=== PATIENT | female | born 1995 | race Two or more races ===

== ENCOUNTER → 2020-04-20 12:41 | Outpatient (BNVA) | payer OTHER, SELFPAY | PROVIDERS: PCP Internal Medicine; Referring Provider Internal Medicine; Visit Provider Nurse Practitioner | DX: Z76.89 Persons encountering health services in other specified circumstances (principal) ==

== ENCOUNTER → 2020-06-01 14:08 | Outpatient (BNVA) | payer OTHER, SELFPAY | PROVIDERS: PCP Internal Medicine; Visit Provider Nurse Practitioner ==

== ENCOUNTER → 2020-11-16 15:28 | Outpatient (BNVA) | payer OTHER, SELFPAY | PROVIDERS: Visit Provider Nurse Practitioner ==

== ENCOUNTER 2021-08-02 13:31 | Outpatient (REF) | payer OTHER, SELFPAY ==
[2021-08-02 13:46] LABS: MANUAL DIFF FLAG NO
[2021-08-02 13:54] LABS: Basophils Percent Auto 0.7 % (0-2); Eosinophils Absolute Auto 0.1 X10*3/uL (0.0-0.4); Hematocrit 40.5 % (37.0-47.0); Hemoglobin 12.8 g/dl (12.0-16.0); Imm Gran Abs Auto 0.02 X10*3/uL (0.00-0.03); Imm Gran Pct Auto 0.3 % (0.0-0.4); Lymphocytes Absolute Auto 1.8 X10*3/uL (1.2-4.9); Lymphocytes Percent Auto 30.3 % (20-40); Mean Corpuscular HGB Conc 31.6 g/dl (31.0-35.0); Mean Corpuscular Volume 94.8 fL (80.0-98.0); Mean Platelet Volume 9.8 fL (9.4-12.3); Monocytes Absolute Auto 0.6 X10*3/uL (0.1-1.2); Monocytes Percent Auto 9.6 % (2-11); Neutrophils Absolute Auto 3.4 x10*3/uL (2.0-8.3); Neutrophils Percent Auto 57.1 % (45-73); Platelet Count 277 X10*3/uL (160-400); Red Blood Count 4.27 X10*6/uL (4.20-5.50); Red Cell Distribution Width 12.7 % (11.0-16.0)
[2021-08-02 14:22] LABS: Alanine Aminotransferase 37 U/L (0-31); Albumin Level 4.6 g/dL (3.5-5.0); Alkaline Phosphatase 59 U/L (39-117); Anion Gap 11 (12-20); Aspartate Amino Transferase 21 U/L (5-31); Bilirubin Total 0.5 mg/dL (0.0-1.0); Blood Urea Nitrogen 11 mg/dL (9-16); Calcium 9.8 mg/dL (8.4-10.2); Carbon Dioxide 28 mmol/L (22-29); Chloride 103 mmol/L (96-108); Estimated Glomerular Filt Rate > 60; Glucose Random 93 mg/dL (60-115); Sodium 138 mmol/L (135-145); Total Protein 8.2 g/dL (6.5-8.0)
== END 2021-08-02 13:32 | disposition home or self-care (01) ==
LOC: HO.LAB 13:31
PROVIDERS: PCP Internal Medicine; Visit Provider Nurse Practitioner
DX: R74.01 Elevation of levels of liver transaminase levels (principal)
CPT/HCPCS: 36415; 80053; 85025

== ENCOUNTER → 2021-08-05 13:26 | Outpatient (BNVA) | payer OTHER, SELFPAY | PROVIDERS: PCP Internal Medicine; Referring Provider Internal Medicine; Visit Provider Nurse Practitioner | DX: R19.7 Diarrhea, unspecified (principal); R74.01 Elevation of levels of liver transaminase levels | CPT/HCPCS: 99212 ==

== ENCOUNTER 2022-04-04 12:09 | Emergency (ER) | payer OTHER, SELFPAY ==
--- NOTE | ~2022-04-04 | XR_ITS ---
EXAMINATION: XR CHEST CLINICAL INFORMATION: Cough, chest pain COMPARISON: None TECHNIQUE: Frontal view of the chest was obtained. FINDINGS: The lungs are clear. No pneumothorax. No airspace consolidation or groundglass opacity or effusion. The heart is normal in size. The hilar and mediastinal contours and bony structures are unremarkable. XR/XR chest 1V IMPRESSION: Unremarkable examination.
--- NOTE | 2022-04-04 13:14 | ED_ITS ---
HPI - Chest Pain General Chief Complaint: Upper Respiratory Symptoms <LICHA Gann - Last Filed: 04/04/22 13:19> Stated Complaint: Chest pain/Cough <LICHA Gann - Last Filed: 04/04/22 13:19> Time Seen by Provider: 04/04/22 15:45 <LICHA Gann - Last Filed: 04/04/22 13:19> History of Present Illness HPI narrative: 26-year-old female with a past medical history of asthma, GERD and transaminitis presents to the emergency department with complaints of substernal burning and pain with coughing x 1 day. Patient states she woke up this morning with a with a new cough and fever. T-max at home 99 ?. She states due to the frequency of coughing she attributes a new burning pain near her sternum when she coughs. She denies any recent illness or known sick contacts. She denies headache, shortness of breath, chills, nausea, vomiting, or changes in vision. <Joseline Pablo NP - Last Filed: 04/04/22 17:08> MD complaint: chest discomfort <Joseline Pablo NP - Last Filed: 04/04/22 17:08> Onset (ago): hour(s) <Joseline Pablo NP - Last Filed: 04/04/22 17:08> Timing of current episode: episodic <Joseline Pablo NP - Last Filed: 04/04/22 17:08> Prior episodes: No <Joseline Pablo NP - Last Filed: 04/04/22 17:08> Onset: during rest and other (With cough) <Joseline Pablo NP - Last Filed: 04/04/22 17:08> Pain location: substernal <Joseline Pablo NP - Last Filed: 04/04/22 17:08> Pain radiation: none <Joseline Pablo NP - Last Filed: 04/04/22 17:08> Severity: mild <Joseline Pablo NP - Last Filed: 04/04/22 17:08> Pain scale (0-10): 4 <Joseline Pablo NP - Last Filed: 04/04/22 17:08> Quality: burning <Joseline Pablo NP - Last Filed: 04/04/22 17:08> Relieving factors: nothing <Joseline Pablo NP - Last Filed: 04/04/22 17:08> Exacerbating factors: other (Coughing) <Joseline Pablo NP - Last Filed: 04/04/22 17:08> Associated symptoms: fever and cough <Joseline Pablo NP - Last Filed: 04/04/22 17:08> Treatment prior to arrival: none <Joseline Pablo NP - Last Filed: 04/04/22 17:08> Risk Factors Coronary artery disease risk factors: none <Joseline Pablo NP - Last Filed: 04/04/22 17:08> Thoracic aortic dissection risk factors: none <Joseline Pablo NP - Last Filed: 04/04/22 17:08> Related Data On Oral Contraceptives: No <Joseline Pablo NP - Last Filed: 04/04/22 17:08> Home Medications: Previous Rx's Medication Instructions Recorded sucralfate 1 gram tablet (Carafate) 2 g PO DAILY #60 tabs 08/05/21 albuterol sulfate 90 mcg/actuation 2 inh inhalation Q4-6H PRN 04/04/22 breath activated powder inhaler shortness of breath or wheezing #1 (ProAir RespiClick) ea <LICHA Gann - Last Filed: 04/04/22 13:19> Allergies/Adverse Reactions: Allergies Allergy/AdvReac Type Severity Reaction Status Date / Time No Known Allergies Allergy Verified 08/05/21 13:50 [No Known Allergies*] <LICHA Gann - Last Filed: 04/04/22 13:19> Review of Systems Review of Systems: Yes all other systems are reviewed and are negative <Joseline Pablo NP - Last Filed: 04/04/22 17:08> Constitutional: Constitutional: Reports no additional constitutional complaints, Denies body ache(s), Denies chills, Reports fever(s) and Denies headache(s) <Joseline Plmaine, CONTAINER MAKER - Last Filed: 04/04/22 17:08> Eyes: Eyes: Reports no additional eye complaints and Denies change in vision <Joseline Plmaine, CONTAINER MAKER - Last Filed: 04/04/22 17:08> ENT: Reports system reviewed and no additional complaints, except as docu mented, Reports Normal hearing present, Denies dizziness, Denies headache(s), Denies nasal congestion, Denies sinus pain, Denies sinus pressure and Reports sore throat <Joseline Plucreji, CONTAINER MAKER - Last Filed: 04/04/22 17:08> Cardiovascular: Cardiovascular: Reports no additional cardiovascular complaints, Denies Loss of Consciousness and Denies dyspnea <Joseline Plmaine, CONTAINER MAKER - Last Filed: 04/04/22 17:08> Respiratory: Respiratory: Reports no additional respiratory complaints, Denies chest congestion, Reports cough, Reports pain on inspiration, Denies dyspnea and Denies wheezing <Joseline Plmaine, CONTAINER MAKER - Last Filed: 04/04/22 17:08> Gastrointestinal: Gastrointestinal: Reports no additional gastrointestinal complaints, Denies change in stool character, Denies constipation, Denies diarrhea, Denies nausea and Denies vomiting <Joseline Bev, CONTAINER MAKER - Last Filed: 04/04/22 17:08> Genitourinary: Genitourinary: Reports no additional female genitourinary complaints <Joseline Plmaine, CONTAINER MAKER - Last Filed: 04/04/22 17:08> Musculoskeletal: Musculoskeletal: Reports no additional musculoskeletal com plaints, Denies myalgias, Denies numbness and Denies tingling <Joseline Plucreji, CONTAINER MAKER - Last Filed: 04/04/22 17:08> Integumentary/Breasts: Skin/Breast: Reports system reviewed and no additional complaints, except as docu, Denies lesions, Denies rash and Denies sores <Joseline Pluciennik, CONTAINER MAKER - Last Filed: 04/04/22 17:08> Neurologic: Reports system reviewed and no additional complaints, except as documented, Reports Normal hearing present, Denies dizziness, Denies headache(s), Denies numbness and Denies tingling <Joseline Pluciennik, CONTAINER MAKER - Last Filed: 04/04/22 17:08> Psychiatric: Psychiatric: Reports no additional psychiatric complaints <Joseline Pablo NP - Last Filed: 04/04/22 17:08> Endocrine: Endocrine: Reports no additional endocrine complaints <Joseline Pablo NP - Last Filed: 04/04/22 17:08> Allergic/Immunologic: Allergic/Immunologic: Denies wheezing <Joseline Pablo NP - Last Filed: 04/04/22 17:08> [facility] Past Medical History Attestation statement: The following information was validated with the patient. <Joseline Pablo NP - Last Filed: 04/04/22 17:08> Source: old records reviewed <Joseline Pablo NP - Last Filed: 04/04/22 17:08> Surgical History: Surgical History Hx of cholecystectomy (~2014) <LICHA Gann - Last Filed: 04/04/22 13:19> Family History Family History: Family History Father No problems noted. Mother No problems noted. <LICHA Gann - Last Filed: 04/04/22 13:19> Social History Social History: Social History Alcohol intake: current Alcohol intake frequency: holidays/special occasions only Advance Directives: No Advance Directives Information Provided: Yes <LICHA Gann - Last Filed: 04/04/22 13:19> Physical Exam Vital Signs: Vital Signs: Last Vital Signs Temp 100.4 F 04/04/22 13:15 Pulse 118 H 04/04/22 13:15 Resp 18 04/04/22 13:15 BP 133/76 04/04/22 13:15 Pulse Ox 98 04/04/22 13:15 O2 Del Method 04/04/22 13:15 BMI result Body Mass Index 24.2 <LICHA Gann - Last Filed: 04/04/22 13:19> Vital Signs: Last Vital Signs Temp 100.4 F 04/04/22 13:15 Pulse 118 H 04/04/22 13:15 Resp 18 04/04/22 13:15 BP 133/76 04/04/22 13:15 Pulse Ox 98 04/04/22 13:15 O2 Del Method 04/04/22 13:15 BMI result Body Mass Index 24.2 <Joseline Pablo CONTAINER MAKER - Last Filed: 04/04/22 17:08> Const: General: cooperative, alert, awake and well groomed <Joseline Pablo CONTAINER MAKER - Last Filed: 04/04/22 17:08> Nutritional Appearance: average body habitus <Joseline Pablo CONTAINER MAKER - Last Filed: 04/04/22 17:08> Orientation/consciousness: patient oriented x3 <Joseline Pablo CONTAINER MAKER - Last Filed: 04/04/22 17:08> Limitations: no limitations <Joseline Pablo CONTAINER MAKER - Last Filed: 04/04/22 17:08> HEENT: Head: Yes normal to inspection, Yes normocephalic and Yes atraumatic <Joseline Pablo CONTAINER MAKER - Last Filed: 04/04/22 17:08> Ears: hearing grossly normal bilaterally and external ears normal <Joseline Pablo CONTAINER MAKER - Last Filed: 04/04/22 17:08> General nose exam: Normal external nose present and Normal nares present <Joseline Pablo CONTAINER MAKER - Last Filed: 04/04/22 17:08> Face and sinus: Yes normal facial exam, Yes sinuses nontender and Yes face symmetric <Joseline Pablo CONTAINER MAKER - Last Filed: 04/04/22 17:08> Mouth: Normal oral and palatal mucosa present <Joseline Pablo CONTAINER MAKER - Last Filed: 04/04/22 17:08> Throat: Yes tonsils normal and Yes uvula midline <Joseline Pablo CONTAINER MAKER - Last Filed: 04/04/22 17:08> Eyes: General: appearance normal, both eyes and all related structures <Joseline Pablo CONTAINER MAKER - Last Filed: 04/04/22 17:08> Visual Seaman: normal visual seaman by confrontation <Joseline Pablo CONTAINER MAKER - Last Filed: 04/04/22 17:08> Alignment and Position: alignment normal <Joseline Pablo CONTAINER MAKER - Last Filed: 04/04/22 17:08> Periorbital: periorbital findings normal <Joseline Pablo, CONTAINER MAKER - Last Filed: 04/04/22 17:08> Eyelids: Yes eyelids normal <Joseline Pablo, CONTAINER MAKER - Last Filed: 04/04/22 17:08> Conjunctivae: conjunctivae normal <Joseline Pablo, CONTAINER MAKER - Last Filed: 04/04/22 17:08> Sclerae: sclerae normal <Joseline Pablo, CONTAINER MAKER - Last Filed: 04/04/22 17:08> Pupils: Equal, round and reactive pupils present <Joseline Pablo, CONTAINER MAKER - Last Filed: 04/04/22 17:08> EOM: EOMs intact bilaterally <Joseline Pablo, CONTAINER MAKER - Last Filed: 04/04/22 17:08> Neck: Neck: Yes normal visual inspection and Yes full ROM <Joseline Pablo CONTAINER MAKER - Last Filed: 04/04/22 17:08> Chest: Chest palpation & inspection: normal inspection of the chest <Joseline Pablo CONTAINER MAKER - Last Filed: 04/04/22 17:08> Resp: Effort & Inspection: normal respiratory effort, able to speak in complete sentences, Actively coughing and not labored <Joseline Pablo CONTAINER MAKER - Last Filed: 04/04/22 17:08> Auscultation: clear to auscultation bilaterally, no crackles, no rhonchi and no wheezes <Joseline Pablo CONTAINER MAKER - Last Filed: 04/04/22 17:08> Cardio: Rate: regular rate <Joseline Pablo, CONTAINER MAKER - Last Filed: 04/04/22 17:08> Rhythm: regular rhythm <Joseline Pablo CONTAINER MAKER - Last Filed: 04/04/22 17:08> GI: Inspection: Yes normal to inspection <Joseline Pablo, CONTAINER MAKER - Last Filed: 04/04/22 17:08> Auscultation: normal bowel sounds <Joseline Pablo, CONTAINER MAKER - Last Filed: 04/04/22 17:08> Back/Spine/Pelvis: Cervical Spine: cervical ROM normal <Joseline Pablo, CONTAINER MAKER - Last Filed: 04/04/22 17:08> Thoracic/Lumbar Spine: thoraco-lumbar ROM normal <Joseline Pablo, CONTAINER MAKER - Last Filed: 04/04/22 17:08> Skin: General skin exam: no rashes or lesions noted <Joseline aPblo, CONTAINER MAKER - Last Filed: 04/04/22 17:08> Neuro: General: patient oriented x3, gait normal and moves all extremities <Joseline Pablo, CONTAINER MAKER - Last Filed: 04/04/22 17:08> Cranial nerves: Yes Equal, round and reactive pupils present, Yes Bilaterally intact EOM present and Yes Normal hearing present <Joseline Pablo, CONTAINER MAKER - Last Filed: 04/04/22 17:08> Cognition (Neuro): normal cognition <Joseline Pablo, CONTAINER MAKER - Last Filed: 04/04/22 17:08> Gait exam (Neuro): Normal gait present <Joselien Pablo, CONTAINER MAKER - Last Filed: 04/04/22 17:08> Motor exam (neuro): 5/5 motor strength present throughout <Joseline Pablo, CONTAINER MAKER - Last Filed: 04/04/22 17:08> Extrem: General: Yes normal to inspection, Yes full ROM and Yes capillary refill normal <Joseline Pablo, CONTAINER MAKER - Last Filed: 04/04/22 17:08> Psych: Appearance: grossly normal <Joseline Pablo, CONTAINER MAKER - Last Filed: 04/04/22 17:08> Mental Status: mental status grossly normal <Joseline Pablo, CONTAINER MAKER - Last Filed: 04/04/22 17:08> Speech and movement: Normal speech and movement present <Joseline Pablo, CONTAINER MAKER - Last Filed: 04/04/22 17:08> Affect: normal affect <Joseline Pablo, CONTAINER MAKER - Last Filed: 04/04/22 17:08> Attitude: cooperative <Joseline Pablo NP - Last Filed: 04/04/22 17:08> Thought process: Normal thought process present <Joseline Pablo NP - Last Filed: 04/04/22 17:08> Thought content: Normal thought content present <Joseline Pablo NP - Last Filed: 04/04/22 17:08> Insight: Good insight present (Psych) <Joseline Pablo NP - Last Filed: 04/04/22 17:08> Judgement: Good judgement present (Psych) <Joseline Pablo NP - Last Filed: 04/04/22 17:08> Course Course Course Narrative: 1500: Serology negative for influenza a, influenza B, RSV, COVID <Joseline Pablo NP - Last Filed: 04/04/22 17:08> Reevaluation(s) Reevaluation #1: RME 26 year old female no significant medical hx presents w/ substernal cp described as burning X1 day, tells me pain doesnt radiate. Describes it as a burning and pain with coughing. No sick contacts. No SOB, headache, dizziness, vision changes, leg swelling. Rapid covid negative at home. Non smoker , not on control, no long travel, no history of blood clots. PE: benign, febrile Plan: labs, ekgs, chest xray, ibuprofen for fever <LICHA Gann - Last Filed: 04/04/22 13:19> Time: 13:17 <LICHA Gann - Last Filed: 04/04/22 13:19> Medications Administered Discontinued Medications Generic Name Dose Route Start Last Admin Trade Name Freq PRN Reason Stop Dose Admin Ibuprofen 800 mg 04/04/22 13:19 04/04/22 14:41 Ibuprofen 800 Mg Tablet PO 04/04/22 13:20 800 mg ONCE ONE Administration <LICHA Gann - Last Filed: 04/04/22 13:19> Medications Administered Discontinued Medications Generic Name Dose Route Start Last Admin Trade Name Freq PRN Reason Stop Dose Admin Ibuprofen 800 mg 04/04/22 13:19 04/04/22 14:41 Ibuprofen 800 Mg Tablet PO 04/04/22 13:20 800 mg ONCE ONE Administration <Joseline Pablo NP - Last Filed: 04/04/22 17:08> MDM - Chest Pain MDM Narrative Medical decision making narrative: 26-year-old female presented to the emergency department with complaints of substernal burning and pain with coughing x 1 day. Blood work unremarkable. Serology negative for flu a, flu B, RSV, or COVID. EKG sinus tachycardia. Chest x-ray unremarkable. Diagnostics, physical exam, history discuss with patient with plan for symptom management with Tylenol, Motrin, [id number] cough medication, increased fluid intake, and rest.? Albuterol inhaler ordered for shortness of breath and wheezing as patient believes she has been diagnosed with asthma in the past.? Patient in agreement with plan with no unanswered questions at this time.? Educated to please return to the emergency department for worsening shortness of breath, increased cough, fever despite treatment with Tylenol Motrin, or any other emergent symptoms that concern you.? Recommended follow-up with primary care provider for further treatment and management.? <Joseline Pablo NP - Last Filed: 04/04/22 17:08> Medical Records Data Attestation: I reviewed the patient's medical records. <Joseline Pablo NP - Last Filed: 04/04/22 17:08> Lab Data Attestation: I reviewed the patient's lab results. <Joseline Pablo NP - Last Filed: 04/04/22 17:08> Result diagrams: : 04/04/22 14:49 04/04/22 14:49 <LICHA Gann - Last Filed: 04/04/22 13:19> Labs: Lab Results 04/04/22 04/04/22 04/04/22 Range/Units 14:49 14:49 14:49 WBC 9.2 (4.8-10.8) X10*3/uL RBC 4.40 (4.20-5.50) X10*6/uL Hgb 13.0 (12.0-16.0) g/dl Hct 39.7 (37.0-47.0) % MCV 90.2 (80.0-98.0) fL MCH 29.5 (27.0-33.0) pg MCHC 32.7 (31.0-35.0) g/dl RDW 12.7 (11.0-16.0) % Plt Count 239 (160-400) X10*3/uL MPV 10.3 (9.4-12.3) fL Immature Gran % (Auto) 0.2 (0.0-0.4) % Neut % (Auto) 90.9 H (45-73) % Lymph % (Auto) 3.7 L (20-40) % [place] % (Auto) 4.8 (2-11) % Eos % (Auto) 0.2 (0-4) % Baso % (Auto) 0.2 (0-2) % Lymph # (Auto) 0.3 L (1.2-4.9) X10*3/uL [place] # (Auto) 0.4 (0.1-1.2) X10*3/uL Eos # (Auto) 0.0 (0.0-0.4) X10*3/uL Baso # (Auto) 0.0 (0.0-0.2) X10*3/uL Abs Immat Gran (auto) 0.02 (0.00-0.03) X10*3/uL Absolute Neuts (auto) 8.4 H (2.0-8.3) x10*3/uL Absolute Nucleated RBC 0.000 (0.0-0.012) X10*3/uL Nucleated RBC % (auto) 0.0 (0.0-0.2) /100WBC Sodium 138 (135-145) mmol/L Potassium 4.1 (3.3-5.1) mmol/L Chloride 102 (96-108) mmol/L Carbon Dioxide 25 (22-29) mmol/L Anion Gap 15 (12-20) BUN 20 H D (9-16) mg/dL Creatinine 0.78 (0.5-1.4) mg/dL Estim Creat Clear Calc 100.5 Estimated GFR > 60 Random Glucose 101 (60-115) mg/dL Calcium 9.5 (8.4-10.2) mg/dL Magnesium 2.0 (1.6-2.6) mg/dL Total Bilirubin 0.3 (0.0-1.0) mg/dL AST 22 (5-31) U/L ALT 24 (0-31) U/L Alkaline Phosphatase 63 (39-117) U/L Troponin I High Sens < 3.5 (<3.5-17.0) ng/L Total Protein 8.0 (6.5-8.0) g/dL Albumin 4.6 (3.5-5.0) g/dL Influenza Type A (PCR) (Negative) Influenza Type B (PCR) (Negative) RSV RNA Qual (PCR) (Negative) SARS-CoV-2 RNA (RT-PCR) (Negative) 04/04/22 Range/Units 14:49 WBC (4.8-10.8) X10*3/uL RBC (4.20-5.50) X10*6/uL Hgb (12.0-16.0) g/dl Hct (37.0-47.0) % MCV (80.0-98.0) fL MCH (27.0-33.0) pg MCHC (31.0-35.0) g/dl RDW (11.0-16.0) % Plt Count (160-400) X10*3/uL MPV (9.4-12.3) fL Immature Gran % (Auto) (0.0-0.4) % Neut % (Auto) (45-73) % Lymph % (Auto) (20-40) % [place] % (Auto) (2-11) % Eos % (Auto) (0-4) % Baso % (Auto) (0-2) % Lymph # (Auto) (1.2-4.9) X10*3/uL [place] # (Auto) (0.1-1.2) X10*3/uL Eos # (Auto) (0.0-0.4) X10*3/uL Baso # (Auto) (0.0-0.2) X10*3/uL Abs Immat Gran (auto) (0.00-0.03) X10*3/uL Absolute Neuts (auto) (2.0-8.3) x10*3/uL Absolute Nucleated RBC (0.0-0.012) X10*3/uL Nucleated RBC % (auto) (0.0-0.2) /100WBC Sodium (135-145) mmol/L Potassium (3.3-5.1) mmol/L Chloride (96-108) mmol/L Carbon Dioxide (22-29) mmol/L Anion Gap (12-20) BUN (9-16) mg/dL Creatinine (0.5-1.4) mg/dL Estim Creat Clear Calc Estimated GFR Random Glucose (60-115) mg/dL Calcium (8.4-10.2) mg/dL Magnesium (1.6-2.6) mg/dL Total Bilirubin (0.0-1.0) mg/dL AST (5-31) U/L ALT (0-31) U/L Alkaline Phosphatase (39-117) U/L Troponin I High Sens (<3.5-17.0) ng/L Total Protein (6.5-8.0) g/dL Albumin (3.5-5.0) g/dL Influenza Type A (PCR) NEGATIVE (Negative) Influenza Type B (PCR) NEGATIVE (Negative) RSV RNA Qual (PCR) NEGATIVE (Negative) SARS-CoV-2 RNA (RT-PCR) NEGATIVE (Negative) <LICHA Gann - Last Filed: 04/04/22 13:19> Lab Results 04/04/22 04/04/22 04/04/22 Range/Units 14:49 14:49 14:49 WBC 9.2 (4.8-10.8) X10*3/uL RBC 4.40 (4.20-5.50) X10*6/uL Hgb 13.0 (12.0-16.0) g/dl Hct 39.7 (37.0-47.0) % MCV 90.2 (80.0-98.0) fL MCH 29.5 (27.0-33.0) pg MCHC 32.7 (31.0-35.0) g/dl RDW 12.7 (11.0-16.0) % Plt Count 239 (160-400) X10*3/uL MPV 10.3 (9.4-12.3) fL Immature Gran % (Auto) 0.2 (0.0-0.4) % Neut % (Auto) 90.9 H (45-73) % Lymph % (Auto) 3.7 L (20-40) % [place] % (Auto) 4.8 (2-11) % Eos % (Auto) 0.2 (0-4) % Baso % (Auto) 0.2 (0-2) % Lymph # (Auto) 0.3 L (1.2-4.9) X10*3/uL [place] # (Auto) 0.4 (0.1-1.2) X10*3/uL Eos # (Auto) 0.0 (0.0-0.4) X10*3/uL Baso # (Auto) 0.0 (0.0-0.2) X10*3/uL Abs Immat Gran (auto) 0.02 (0.00-0.03) X10*3/uL Absolute Neuts (auto) 8.4 H (2.0-8.3) x10*3/uL Absolute Nucleated RBC 0.000 (0.0-0.012) X10*3/uL Nucleated RBC % (auto) 0.0 (0.0-0.2) /100WBC Sodium 138 (135-145) mmol/L Potassium 4.1 (3.3-5.1) mmol/L Chloride 102 (96-108) mmol/L Carbon Dioxide 25 (22-29) mmol/L Anion Gap 15 (12-20) BUN 20 H D (9-16) mg/dL Creatinine 0.78 (0.5-1.4) mg/dL Estim Creat Clear Calc 100.5 Estimated GFR > 60 Random Glucose 101 (60-115) mg/dL Calcium 9.5 (8.4-10.2) mg/dL Magnesium 2.0 (1.6-2.6) mg/dL Total Bilirubin 0.3 (0.0-1.0) mg/dL AST 22 (5-31) U/L ALT 24 (0-31) U/L Alkaline Phosphatase 63 (39-117) U/L Troponin I High Sens < 3.5 (<3.5-17.0) ng/L Total Protein 8.0 (6.5-8.0) g/dL Albumin 4.6 (3.5-5.0) g/dL Influenza Type A (PCR) (Negative) Influenza Type B (PCR) (Negative) RSV RNA Qual (PCR) (Negative) SARS-CoV-2 RNA (RT-PCR) (Negative) 04/04/22 Range/Units 14:49 WBC (4.8-10.8) X10*3/uL RBC (4.20-5.50) X10*6/uL Hgb (12.0-16.0) g/dl Hct (37.0-47.0) % MCV (80.0-98.0) fL MCH (27.0-33.0) pg MCHC (31.0-35.0) g/dl RDW (11.0-16.0) % Plt Count (160-400) X10*3/uL MPV (9.4-12.3) fL Immature Gran % (Auto) (0.0-0.4) % Neut % (Auto) (45-73) % Lymph % (Auto) (20-40) % [place] % (Auto) (2-11) % Eos % (Auto) (0-4) % Baso % (Auto) (0-2) % Lymph # (Auto) (1.2-4.9) X10*3/uL [place] # (Auto) (0.1-1.2) X10*3/uL Eos # (Auto) (0.0-0.4) X10*3/uL Baso # (Auto) (0.0-0.2) X10*3/uL Abs Immat Gran (auto) (0.00-0.03) X10*3/uL Absolute Neuts (auto) (2.0-8.3) x10*3/uL Absolute Nucleated RBC (0.0-0.012) X10*3/uL Nucleated RBC % (auto) (0.0-0.2) /100WBC Sodium (135-145) mmol/L Potassium (3.3-5.1) mmol/L Chloride (96-108) mmol/L Carbon Dioxide (22-29) mmol/L Anion Gap (12-20) BUN (9-16) mg/dL Creatinine (0.5-1.4) mg/dL Estim Creat Clear Calc Estimated GFR Random Glucose (60-115) mg/dL Calcium (8.4-10.2) mg/dL Magnesium (1.6-2.6) mg/dL Total Bilirubin (0.0-1.0) mg/dL AST (5-31) U/L ALT (0-31) U/L Alkaline Phosphatase (39-117) U/L Troponin I High Sens (<3.5-17.0) ng/L Total Protein (6.5-8.0) g/dL Albumin (3.5-5.0) g/dL Influenza Type A (PCR) NEGATIVE (Negative) Influenza Type B (PCR) NEGATIVE (Negative) RSV RNA Qual (PCR) NEGATIVE (Negative) SARS-CoV-2 RNA (RT-PCR) NEGATIVE (Negative) <Joseline Pablo NP - Last Filed: 04/04/22 17:08> Imaging Data Chest x-ray: My impression: Chest x-ray unremarkable. <Joseline Pablo NP - Last Filed: 04/04/22 17:08> Radiologist's impression: EXAMINATION: XR CHEST CLINICAL INFORMATION: Cough, chest pain COMPARISON: None TECHNIQUE: Frontal view of the chest was obtained. FINDINGS: The lungs are clear. No pneumothorax. No airspace consolidation or groundglass opacity or effusion. The heart is normal in size. The hilar and mediastinal contours and bony structures are unremarkable. XR/XR chest 1V IMPRESSION: Unremarkable examination. Dictated By: Jaydon Lau MD Signed By: <Electronically signed by Jaydon Lau MD in [place]> 04/04/22 1433 DD/ 1345 TD/TT:? [employer] Developer: PEREZ <Joseline Pablo NP - Last Filed: 04/04/22 17:08> ECG Data ECG #1: Attestation: I personally reviewed and interpreted this ECG as follows: (Sinus tachycardia) <Joseline Pablo NP - Last Filed: 04/04/22 17:08> Interpretation: Test Reason : CHEST PAIN Blood Pressure : / mmHG Vent. Rate : 112 BPM ? ? Atrial Rate : 112 BPM ?? P-R Int : 120 ms? QRS Dur : 078 ms ? ? QT Int : 322 ms ? ? ? P-R-T Axes : 079 087 039 degrees ?? QTc Int : 439 ms ? Sinus tachycardia Possible Left atrial enlargement Borderline ECG No previous ECGs available ? Referred By: Kevin Mendez ? ? <Joseline Pablo NP - Last Filed: 04/04/22 17:08> Discharge Plan Discharge Clinical Impression: Upper respiratory infection, acute <LICHA Gann - Last Filed: 04/04/22 13:19> Patient Disposition: Home, Self-Care <LICHA Gann - Last Filed: 04/04/22 13:19> Instructions: Upper Respiratory Infection (ED) <LICHA Gann - Last Filed: 04/04/22 13:19> Additional Instructions: Please return to the emergency department with fever even though you are taking Motrin, increased headache, increased chest pain when coughing, change of vision, or any other emergent symptoms it may concern you. Recommended to follow-up the primary care provider for further treatment and management. Last Motrin given at 2:45 p.m. may take next dose after 8:45 p.m. <LICHA Gann - Last Filed: 04/04/22 13:19> Prescriptions: New ProAir RespiClick 90 mcg/actuation aerosol powdr breath activated 2 inh inhalation Q4-6H PRN (Reason: shortness of breath or wheezing) Qty: 1 0RF No Action sucralfate [Carafate] 1 gram tablet 2 g PO DAILY Qty: 60 6RF <LICHA Gann - Last Filed: 04/04/22 13:19> Referrals: [facility] [place] Family Medicine [Provider Group] [facility] [place] Primary Care, [place] [Provider Group] [facility] [place] Primary Care,Yong [Provider Group] <LICHA Gann - Last Filed: 04/04/22 13:19> Stand Alone Forms: Work/School Release <LICHA Gann Last Filed: 04/04/22 13:19> Interventions: ED Discharge Assessment Last Done: 04/04/22 16:31 <LICHA Gann Last Filed: 04/04/22 13:19> Discharge Date/Time: 04/04/22 16:32 <LICAH Gann Last Filed: 04/04/22 13:19> Print Language: Citizen Of [place] <ILCHA Gann - Last Filed: 04/04/22 13:19>
[2022-04-04 13:15] VITALS: BP 133/76; PULSE 118; RESP 18; TEMP 38; O2SAT 98; BMI 24.2
--- NOTE | 2022-04-04 13:15 | ECG_ITS ---
Test Reason : CHEST PAIN Blood Pressure : / mmHG Vent. Rate : 112 BPM Atrial Rate : 112 BPM P-R Int : 120 ms QRS Dur : 078 ms QT Int : 322 ms P-R-T Axes : 079 087 039 degrees QTc Int : 439 ms Sinus tachycardia Possible Left atrial enlargement Borderline ECG No previous ECGs available Referred By: Kevin Mendez Electronically Signed By:MARY BREWSTER MD
[2022-04-04] MEDS: Ibuprofen 800 MG TABLET PO (14:41)
--- NOTE | 2022-04-04 14:41 | PC.NURSE ---
BAR CODE WRIPPED OFF MED
[2022-04-04 14:54] LABS: MANUAL DIFF FLAG NO
[2022-04-04 15:00] LABS: Basophils Percent Auto 0.2 % (0-2); Eosinophils Percent Auto 0.2 % (0-4); Hematocrit 39.7 % (37.0-47.0); Imm Gran Abs Auto 0.02 X10*3/uL (0.00-0.03); Imm Gran Pct Auto 0.2 % (0.0-0.4); Lymphocytes Absolute Auto 0.3 X10*3/uL (1.2-4.9); Lymphocytes Percent Auto 3.7 % (20-40); Mean Corpuscular HGB Conc 32.7 g/dl (31.0-35.0); Mean Corpuscular Hemoglobin 29.5 pg (27.0-33.0); Mean Corpuscular Volume 90.2 fL (80.0-98.0); Mean Platelet Volume 10.3 fL (9.4-12.3); Monocytes Absolute Auto 0.4 X10*3/uL (0.1-1.2); Monocytes Percent Auto 4.8 % (2-11); Neutrophils Absolute Auto 8.4 x10*3/uL (2.0-8.3); Neutrophils Percent Auto 90.9 % (45-73); Platelet Count 239 X10*3/uL (160-400); Red Cell Distribution Width 12.7 % (11.0-16.0); SCAN SMEAR FLAG 1; White Blood Count 9.2 X10*3/uL (4.8-10.8)
[2022-04-04 15:12] LABS: Alanine Aminotransferase 24 U/L (0-31); Albumin Level 4.6 g/dL (3.5-5.0); Alkaline Phosphatase 63 U/L (39-117); Anion Gap 15 (12-20); Aspartate Amino Transferase 22 U/L (5-31); Bilirubin Total 0.3 mg/dL (0.0-1.0); Blood Urea Nitrogen 20 mg/dL (9-16); Calcium 9.5 mg/dL (8.4-10.2); Carbon Dioxide 25 mmol/L (22-29); Chloride 102 mmol/L (96-108); Creatinine Clr Calc Pharmacy 100.5; Estimated Glomerular Filt Rate > 60; Glucose Random 101 mg/dL (60-115); Potassium 4.1 mmol/L (3.3-5.1); Sodium 138 mmol/L (135-145)
[2022-04-04 15:18] LABS: Troponin-I High Sensitivity < 3.5 ng/L (<3.5-17.0)
[2022-04-04 15:32] LABS: Influenza A PCR NEGATIVE (Negative); Influenza B PCR NEGATIVE (Negative); Resp Syncy Virus RNA Qual PCR NEGATIVE (Negative); SARS COV2 PCR INHOUSE NEGATIVE (Negative)
== END 2022-04-04 16:32 | disposition home or self-care (01) ==
PROVIDERS: Physician Assistant; Emergency Provider Emergency Medicine
DX: J06.9 Acute upper respiratory infection, unspecified (principal); R50.9 Fever, unspecified; Z20.822 Contact with and (suspected) exposure to COVID-19
CPT/HCPCS: 0241U; 36415; 71045; 80053; 83735; 84484; 85025; 93005; 99283; 99284

== ENCOUNTER 2022-10-07 16:18 | Emergency (ER) | payer OTHER, SELFPAY ==
[2022-10-07 16:30] VITALS: BP 117/72; PULSE 74; RESP 18; TEMP 36.7; O2SAT 98; BMI 26.3
--- NOTE | 2022-10-07 16:31 | ED_ITS ---
HPI - General Adult General Chief complaint: Abdominal Pain Stated complaint: abdominal pain Time Seen by Provider: 10/07/22 20:07 Source: patient and family (patient's mother) Mode of arrival: ambulatory Limitations: no limitations History of Present Illness HPI narrative: Patient is a 27 year old assigned female at with a history of transaminitis presenting to the emergency department today with abdominal pain. Patient states that over the last few days she has had abdominal pain and diarrhea. Patient states that she sometimes has these pains when her liver enzymes are elevated. Patient denies any dizziness, lightheadedness, nausea, vomiting, fever, chills, blurry vision, double vision, loss of vision, chest pain, difficulty breathing, shortness of breath, back pain, night sweats, pain with urination, increased urinary frequency, increased urinary urgency, blood in her urine or stool, syncope or a near syncopal episode, recent trauma or falls, bowel incontinence, bladder incontinence, bowel retention, bladder retention, or any other complaints at this time. Onset (ago): day(s) Location: abdomen Radiation: non-radiation Severity: mild Severity scale (1-10): 3 Quality: aching Pain Consistency: constant Relieving factors: none Exacerbating factors: none Associated symptoms: denies other symptoms Treatments prior to arrival: none Related Data Previous Rx's Medication Instructions Recorded sucralfate 1 gram tablet (Carafate) 2 g PO DAILY #60 tabs 08/05/21 albuterol sulfate 90 mcg/actuation 2 inh inhalation Q4-6H PRN 04/04/22 breath activated powder inhaler shortness of breath or wheezing #1 (ProAir RespiClick) ea nitrofurantoin 100 mg PO Q12H 7 days #14 caps 10/07/22 monohydrate/macrocrystals 100 mg capsule (Macrobid) Allergies Allergy/AdvReac Type Severity Reaction Status Date / Time No Known Allergies Allergy Verified 08/05/21 13:50 [No Known Allergies*] Review of Systems Constitutional: Constitutional: Reports no additional constitutional complaints, Denies chills, Denies fever(s) and Denies night sweats Eyes: Eyes: Reports no additional eye complaints, Denies blurry vision, Denies change in vision, Denies diplopia, Denies eye discharge, Denies loss of vision and Denies eye pain ENT: Denies dizziness Cardiovascular: Cardiovascular: Reports no additional cardiovascular complaints, Denies chest pain, Denies lightheadedness, Denies Loss of Conscious ness and Denies dyspnea Respiratory: Respiratory: Reports no additional respiratory complaints and Denies dyspnea Gastrointestinal: Gastrointestinal: Reports no additional gastrointestinal com plaints, Reports abdominal pain, Denies melena, Denies hematochezia, Denies change in bowel habits, Denies change in stool character and Reports diarrhea Genitourinary: Genitourinary: Denies hematuria, Denies urinary frequency, Denies dysuria, Denies urinary incontinence, Denies urinary hesitancy and Denies urinary urgency Musculoskeletal: Musculoskeletal: Reports no additional musculoskeletal complaints, Denies numbness and Denies tingling Neurologic: Denies dizziness, Denies loss of vision, Denies numbness and Denies tingling Psychiatric: Psychiatric: Reports no additional psychiatric complaints Endocrine: Endocrine: Reports no additional endocrine complaints Hematologic/Lymphatic: Hematologic/Lymphatic: Reports no additional hematologic/lymphatic complaints Allergic/Immunologic: Allergic/Immunologic: Reports no additional allergic/ immunologic complaints PMFSH Past Medical History Attestation statement: The following information was validated with the patient. (all information validated with the patient's mother) Source: old records reviewed, obtained from family (patient's mother) and nursing notes reviewed Surgical History Hx of cholecystectomy (~2014) Family History Family History Father No problems noted. Mother No problems noted. Social History Social History Alcohol intake: current Alcohol intake frequency: holidays/special occasions only Physical Exam ED Vital Signs: Vital Signs - 24 hr 10/07/22 16:30 Temperature 98.0 F Pulse Rate 74 Respiratory Rate 18 Blood Pressure 117/72 Pulse Oximetry 98 Oxygen Delivery Method Room Air BMI result Body Mass Index 26.3 Const General: cooperative, no acute distress, alert and awake Nutritional Appearance: well nourished Orientation/consciousness: patient oriented x3 Limitations: no limitations HENMT Head: Yes normal to inspection and Yes atraumatic Ears: hearing grossly normal bilaterally and external ears normal General nose exam: Normal external nose present, no nasal discharge noted and no epistaxis Face and sinus: Yes normal facial exam, No abrasion and No laceration Mouth: Normal oral and palatal mucosa present, no drooling and no muffled voice Eyes General: appearance normal, both eyes and all related structures Periorbital: periorbital findings normal Eyelids: Yes eyelids normal Conjunctivae: conjunctivae normal Pupils: Equal, round and reactive pupils present EOM: EOMs intact bilaterally Neck Neck: Yes normal visual inspection, Yes full ROM and Yes no lymphadenopathy Chest Chest palpation & inspection: normal inspection of the chest Resp Effort & Inspection: normal respiratory effort and able to speak in complete sentences Auscultation: clear to auscultation bilaterally Cardio Rate: regular rate Rhythm: regular rhythm GI Inspection: Yes normal to inspection Palpation (GI): Soft to palpation, not firm, nontender and no guarding Neuro General: patient oriented x3 and moves all extremities Cranial nerves: Yes Equal, round and reactive pupils present Cognition (Neuro): normal cognition Motor exam (neuro): 5/5 motor strength present throughout Sensory Exam: Normal double simultaneous stimulation for sensation Coordination: aiqpid-co-lauv test normal Extrem General: Yes normal to inspection, Yes full ROM and Yes capillary refill normal Psych Appearance: grossly normal Mental Status: mental status grossly normal Affect: normal affect Attitude: cooperative Thought process: Normal thought process present Thought content: Normal thought content present Insight: Good insight present (Psych) Course Course Course Narrative: RME performed by Danielle Varela PA-C. Patient is a 27 year old assigned femal e at presenting to the emergency department with abdominal pain. Labs ordered. Patient placed back in the waiting room pending room availability and results. Medical Decision Making Medical Decision Making MDM Narrative: Patient is a 27 year old assigned male at with a history of transaminitis presenting to the emergency department today with abdominal pain. Patient's physical exam was unremarkable. Patient's blood work showed elevated LFTs however, when reviewing this with the patient and her mother, she states that this sometimes happens to her and is her normal. Patient's urine showed a probable UTI. I explained my physical exam findings as well as all test results to the patient and the patient's mother. I answered all questions asked by the patient and the patient's mother. I stressed the importance of the patient taking her medication as prescribed. I stressed the importance of the patient following up with her primary care provider and her GI specialist. I stressed th e importance of the patient returning to the emergency department immediately if her symptoms were to worsen or if she were to develop any dizziness, shortness of breath, difficulty breathing, chest pain, blurry vision, loss of vision, nausea, vomiting, abdominal pain, fever, chills, back pain, or any other complaints. Patient and the patient's mother verbalized agreement and understanding with this treatment plan and discharge. Differential Diagnosis Differential Diagnoses: The differential diagnosis associated with the presentation includes abdominal pain, diarrhea, UTI Admission/Observation Consideration of admission/observation: Escalation of care including admission/observation considered Patient would have been admitted to the hospital had his work up had any findings where hospital admission was appropriate. Lab Data MDM Lab Attestation statement: I reviewed the patient's lab results. My interpretation of these studies and their corresponding values is that they are grossly normal with the exception of the elevated AST and ALT which, according to the patient, is her baseline. 10/07/22 18:13 10/07/22 18:14 Labs: Lab Results 10/07/22 10/07/22 10/07/22 Range/Units 18:13 18:13 18:14 WBC 7.3 (4.8-10.8) X10*3/uL RBC 4.20 (4.20-5.50) X10*6/uL Hgb 12.3 (12.0-16.0) g/dl Hct 37.7 (37.0-47.0) % MCV 89.8 (80.0-98.0) fL MCH 29.3 (27.0-33.0) pg MCHC 32.6 (31.0-35.0) g/dl RDW 13.4 (11.0-16.0) % Plt Count 245 (160-400) X10*3/uL MPV 10.0 (9.4-12.3) fL Immature Gran % (Auto) 1.0 H (0.0-0.4) % Neut % (Auto) 68.1 (45-73) % Lymph % (Auto) 17.6 L (20-40) % [place] % (Auto) 8.5 (2-11) % Eos % (Auto) 4.4 H (0-4) % Baso % (Auto) 0.4 (0-2) % Lymph # (Auto) 1.3 (1.2-4.9) X10*3/uL [place] # (Auto) 0.6 (0.1-1.2) X10*3/uL Eos # (Auto) 0.3 (0.0-0.4) X10*3/uL Baso # (Auto) 0.0 (0.0-0.2) X10*3/uL Abs Immat Gran (auto) 0.07 H (0.00-0.03) X10*3/uL Absolute Neuts (auto) 5.0 (2.0-8.3) x10*3/uL Absolute Nucleated RBC 0.000 (0.0-0.012) X10*3/uL Nucleated RBC % (auto) 0.0 (0.0-0.2) /100WBC Sodium 138 (135-145) mmol/L Potassium 4.2 (3.3-5.1) mmol/L Chloride 106 (96-108) mmol/L Carbon Dioxide 25 (22-29) mmol/L Anion Gap 11 L (12-20) BUN 15 (9-16) mg/dL Creatinine 0.72 (0.5-1.4) mg/dL Estim Creat Clear Calc 118.6 Estimated GFR > 60 Random Glucose 101 (60-115) mg/dL Calcium 9.2 (8.4-10.2) mg/dL Magnesium 2.1 (1.6-2.6) mg/dL Total Bilirubin 0.6 (0.0-1.0) mg/dL AST 326 H (5-31) U/L ALT 231 H (0-31) U/L Alkaline Phosphatase 86 (39-117) U/L Total Protein 7.7 (6.5-8.0) g/dL Albumin 4.3 (3.5-5.0) g/dL Lipase 44 (8-78) U/L Beta HCG, Quant < 2 mIU/mL Urine Color RED Urine Appearance Turbid Urine pH 7.0 (5.0-9.0) Ur Specific [place] 1.020 (1.005-1.025) Urine Protein 100 (2+) H (Neg-Trace) mg/dL Urine Glucose (UA) Negative (Negative) mg/dL Urine Ketones Trace (Negative) mg/dL Urine Blood Large (3+) H (Negative) Urine Nitrite Positive H (Negative) Ur Leukocyte Esterase Small (1+) H (Negative) Urine RBC >20 H (0-2) /HPF Urine WBC 21-50 H (0-5) /HPF Ur Squamous Epith Cells 3-5 (0-2) /HPF Urine Bacteria 1+ (None Seen) Hyaline Casts 0-2 (0-2) /LPF Independent Historian Clinical information obtained from an independent historian. History obtained from or confirmed by: Parent (patient's mother provided additional history and confirmed the history given by the patient) Discharge Plan Discharge Clinical Impression: UTI (urinary tract infection), Elevated LFTs Patient Disposition: Home, Self-Care Instructions: Urinary Tract Infection in Women (DC) Additional Instructions: Follow up with your primary care provider and a GI specialist for your elevated LFTs. Return to the emergency department immediately if your symptoms worsen or if you develop any dizziness, shortness of breath, difficulty breathing, chest pain, blurry vision, loss of vision, nausea, vomiting, abdominal pain, fever, chills, back pain, or any other complaints. Prescriptions: New nitrofurantoin monohyd/m-cryst [Macrobid] 100 mg capsule 100 mg PO Q12H 7 Days Qty: 14 0RF Rx Instructions: must administer with a meal/food No Action ProAir RespiClick 90 mcg/actuation aerosol powdr breath activated 2 inh inhalation Q4-6H PRN (Reason: shortness of breath or wheezing) Qty: 1 0RF sucralfate [Carafate] 1 gram tablet 2 g PO DAILY Qty: 60 6RF Ref[place]: [facility] [place] [facility] [place]] (Call to establish and follow up with a GI specialist. ) [facility] [place] [facility] [place]Provider Group] (Call to establish and follow up with a primary care provider. If you already have a primary care provider, please follow up with them.) [facility] [place] [facility] [place] [Provider Group] (Call to establish and follow up with a primary care provider. If you already have a primary care provider, please follow up with them.) [facility] [place] [facility] [Provider Group] (Call to establish and follow up with a primary care provider. If you already have a primary care provider, please follow up with them.) Print Language: Iranian
--- NOTE | 2022-10-07 18:17 | MHC.EDTECH ---
PT URINE SAMPLE COLLECTED AND BLOOD DRAWN AND SENT TO LAB .
[2022-10-07 18:18] LABS: MANUAL DIFF FLAG NO
[2022-10-07 18:22] LABS: Appearance Urine Turbid; Color Urine RED; Glucose Urine UA Negative (Negative); Leukocyte Esterase Urine Small (1+) (Negative); UMIC TRIGGER UACC YES; Urine Blood Large (3+) (Negative); Urine Ketones Trace mg/dL (Negative); Urine Protein 100 (2+) mg/dL (Neg-Trace)
[2022-10-07 18:24] LABS: Basophils Percent Auto 0.4 % (0-2); Eosinophils Absolute Auto 0.3 X10*3/uL (0.0-0.4); Eosinophils Percent Auto 4.4 % (0-4); Hematocrit 37.7 % (37.0-47.0); Hemoglobin 12.3 g/dl (12.0-16.0); Imm Gran Abs Auto 0.07 X10*3/uL (0.00-0.03); Lymphocytes Absolute Auto 1.3 X10*3/uL (1.2-4.9); Lymphocytes Percent Auto 17.6 % (20-40); Mean Corpuscular HGB Conc 32.6 g/dl (31.0-35.0); Mean Corpuscular Hemoglobin 29.3 pg (27.0-33.0); Mean Corpuscular Volume 89.8 fL (80.0-98.0); Monocytes Absolute Auto 0.6 X10*3/uL (0.1-1.2); Monocytes Percent Auto 8.5 % (2-11); Neutrophils Percent Auto 68.1 % (45-73); Platelet Count 245 X10*3/uL (160-400); Red Cell Distribution Width 13.4 % (11.0-16.0); White Blood Count 7.3 X10*3/uL (4.8-10.8)
[2022-10-07 18:28] LABS: Bacteria Urine 1+ (None Seen); Hyaline Casts Urine 0-2 /LPF (0-2); RBC Urine >20 /HPF (0-2); WBC Urine 21-50 /HPF (0-5)
[2022-10-07 18:29] LABS: Nitrite Urine Positive (Negative); UACC Culture Trigger YES
[2022-10-07 18:57] LABS: Alanine Aminotransferase 231 U/L (0-31); Albumin Level 4.3 g/dL (3.5-5.0); Alkaline Phosphatase 86 U/L (39-117); Anion Gap 11 (12-20); Aspartate Amino Transferase 326 U/L (5-31); Bilirubin Total 0.6 mg/dL (0.0-1.0); Blood Urea Nitrogen 15 mg/dL (9-16); Calcium 9.2 mg/dL (8.4-10.2); Carbon Dioxide 25 mmol/L (22-29); Chloride 106 mmol/L (96-108); Creatinine Clr Calc Pharmacy 118.6; Estimated Glomerular Filt Rate > 60; Glucose Random 101 mg/dL (60-115); Lipase 44 U/L (8-78); Magnesium 2.1 mg/dL (1.6-2.6); Potassium 4.2 mmol/L (3.3-5.1); Sodium 138 mmol/L (135-145); Total Protein 7.7 g/dL (6.5-8.0)
[2022-10-07 18:58] LABS: HCG Quantitative < 2 mIU/mL
--- NOTE | 2022-10-07 23:50 | PC.NURSE ---
Reviewed discharge instructions with pt. pt verbalized understanding.
== END 2022-10-07 23:50 | disposition home or self-care (01) ==
PROVIDERS: Physician Assistant Medical; Emergency Provider Emergency Medicine
DX: N39.0 Urinary tract infection, site not specified (principal); R79.89 Other specified abnormal findings of blood chemistry
CPT/HCPCS: 36415; 80053; 81001; 83690; 83735; 84702; 85025; 87086; 99282; 99283